=== PATIENT | male | born 1960 | race Caucasian/White ===

== ENCOUNTER 2024-07-14 22:05 | Inpatient (IN) | payer MEDICARE, OTHER ==
[~2024-07-14] VITALS: Ht 185.4 cm; Wt 68.0 kg
[2024-07-14] MEDS ORDERED: OLAN2.5T3 PO (22:20)
[2024-07-14] MEDS ORDERED: diphenhydrAMINE 50 MG/1 ML VIAL ONE (23:23)
[2024-07-14] MEDS ORDERED: LORAZEPAM 2 MG/1 ML VIAL ONE (23:23)
[2024-07-14] MEDS: LORAZEPAM 2 MG/1 ML VIAL IM ONE (23:28)
[2024-07-14] MEDS: diphenhydrAMINE 50 MG/1 ML VIAL IM ONE (23:29)
[2024-07-15] MEDS ORDERED: MAGNESIUM HYDROXIDE 30 ML LIQUID UDC PO PRN
[2024-07-15 00:14] VITALS: BP 119/68; TEMP 98.1; O2SAT 99
[2024-07-15] MEDS: TEMAZEPAM 7.5 MG CAPSULE PO PRN (00:35)
[2024-07-15] MEDS: LORAZEPAM 1 MG TABLET PO PRN ×2 (02:29→16:31)
[2024-07-15 08:04] VITALS: BP 140/71; TEMP 98.3; O2SAT 98
[2024-07-15] MEDS: OLANZAPINE ZYDIS 5 MG TAB.RAPDIS PO SCH (16:31)
[2024-07-16] MEDS: OLANZAPINE 10 MG VIAL IM ONE (04:55)
[2024-07-16] MEDS: ENSURE ENLIVE (VAN) 240 ML LIQUID PO SCH (08:20)
[2024-07-16 08:44] VITALS: BP 138/71; TEMP 98.1; O2SAT 98
[2024-07-16] MEDS: OLANZAPINE ZYDIS 5 MG TAB.RAPDIS PO PRN (14:20)
[2024-07-16] MEDS: diphenhydrAMINE 50 MG/1 ML VIAL IM STA (16:58)
[2024-07-16] MEDS: HALOPERIDOL LACTATE 5 MG/1 ML VIAL IM STA (16:58)
[2024-07-16 19:50] VITALS: BP 132/62; TEMP 98; O2SAT 96
[2024-07-16] MEDS: OLANZAPINE ZYDIS 5 MG TAB.RAPDIS PO SCH (20:14)
[2024-07-16] MEDS: TEMAZEPAM 7.5 MG CAPSULE PO PRN (22:27)
[2024-07-17] MEDS: OLANZAPINE 10 MG VIAL IM ONE (11:39)
[2024-07-17] MEDS: GABAPENTIN 100 MG CAPSULE PO SCH (17:02)
[2024-07-17 20:53] VITALS: BP 135/78; TEMP 98.6; O2SAT 96
[2024-07-18] MEDS: GABAPENTIN 300 MG CAPSULE PO SCH (12:21)
[2024-07-18] MEDS: risperiDONE 1 MG TABLET PO SCH (12:21)
[2024-07-18] MEDS ORDERED: OLANZAPINE ZYDIS 5 MG TAB.RAPDIS PO SCH (13:00)
[2024-07-18] MEDS ORDERED: GABAPENTIN 100 MG CAPSULE PO SCH (13:00)
[2024-07-18] MEDS: OLANZAPINE ZYDIS 5 MG TAB.RAPDIS PO SCH (17:20)
[2024-07-18 19:32] VITALS: BP 131/65; TEMP 98.2; O2SAT 97
[2024-07-19 08:14] VITALS: BP 157/92; TEMP 97.8; O2SAT 98
[2024-07-19 08:26] LABS: HEMATOCRIT 32.2 % (36.7-47.1); HEMOGLOBIN 10.9 g/dL (12.5-16.3); MEAN CORPUSCULAR VOLUME 99.4 fL (73.0-96.2); RED BLOOD CELL COUNT(AUTO) 3.24 MIL/uL (4.06-5.63); WHITE BLOOD COUNT (AUTO) 6.5 K/uL (3.6-10.2)
[2024-07-19 08:27] LABS: BASOPHILS % (AUTO) 0.6 % (0.0-2.0); EOSINOPHILS # (AUTO) 0.1 K/uL (0.0-0.7); EOSINOPHILS % (AUTO) 1.7 % (0.0-7.0); LYMPHOCYTES # (AUTO) 2.8 K/uL (0.8-4.8); MEAN CORPUSCULAR HEMOGLOBIN 33.5 uug (23.8-33.4); MEAN CORPUSCULAR HGB CONC 34 g/dL (32.5-36.3); MONOCYTES # (AUTO) 0.7 K/uL (0.1-1.30); MONOCYTES % (AUTO) 11.6 % (0.0-11.0); NEUTROPHILS # (AUTO) 2.7 K/uL (1.8-8.9); NEUTROPHILS % (AUTO) 42.1 % (38.5-71.5); PLATELET COUNT (AUTO) 238 K/uL (152-348)
[2024-07-19 08:32] LABS: DIFFERENTIAL COMMENT 1
[2024-07-19 09:14] LABS: ALBUMIN 2.8 g/dL (3.4-5.0); BILIRUBIN,TOTAL 0.2 mg/dL (0.2-1.0); CALCIUM 8.5 mg/dL (8.5-10.1); CREATININE 0.8 mg/dL (0.6-1.3); PHOSPHOROUS 3.8 mg/dL (2.5-4.9); POTASSIUM 4.6 mmol/L (3.5-5.1); TOTAL PROTEIN, SERUM 5.6 g/dL (6.4-8.2)
[2024-07-19 09:57] LABS: THYROID STIMULATING HORMONE 0.98 mIU/mL (0.358-3.740)
[2024-07-19] MEDS: risperiDONE 1 MG TABLET PO SCH (12:35)
[2024-07-19 16:04] VITALS: BP 132/68; TEMP 98.1; O2SAT 98
[2024-07-19 16:22] VITALS: BP 132/68; TEMP 98.1; O2SAT 98
[2024-07-19] MEDS: OLANZAPINE ZYDIS 5 MG TAB.RAPDIS PO SCH (17:13)
[2024-07-19] MEDS: OLANZAPINE ZYDIS 5 MG TAB.RAPDIS PO PRN (20:35)
[2024-07-20] MEDS: OLANZAPINE 10 MG VIAL IM ONE (02:52)
[2024-07-20] MEDS: ACETAMINOPHEN 325 MG TABLET PO PRN (08:59)
[2024-07-20] MEDS ORDERED: diphenhydrAMINE 50 MG/1 ML VIAL IV PRN (09:15)
[2024-07-20] MEDS: HALOPERIDOL LACTATE 5 MG/1 ML VIAL IM ONE ×2 (09:25→14:11)
[2024-07-20] MEDS: diphenhydrAMINE 50 MG/1 ML VIAL IV ONE (09:25)
[2024-07-20] MEDS: OLANZAPINE ZYDIS 5 MG TAB.RAPDIS PO SCH ×2 (12:55→20:22)
[2024-07-20] MEDS: LORAZEPAM 2 MG/1 ML VIAL IM ONE ×2 (14:11→14:12)
[2024-07-20 19:52] VITALS: BP 128/62; TEMP 98.5; O2SAT 96
[2024-07-20] MEDS ORDERED: OLANZAPINE ZYDIS 5 MG TAB.RAPDIS PO SCH (21:00)
[2024-07-21] MEDS: risperiDONE-M 0.5 MG TAB.RAPDIS PO SCH (08:55)
[2024-07-21] MEDS: GABAPENTIN 400 MG CAPSULE PO SCH (08:55)
[2024-07-21] MEDS: HALOPERIDOL LACTATE 5 MG/1 ML VIAL IM STA (15:01)
[2024-07-21] MEDS: diphenhydrAMINE 50 MG/1 ML VIAL IM STA (15:01)
[2024-07-22] MEDS: MAG HYDROX/AL HYDROX/SIMETH 30 ML LIQUID UDC PO PRN (07:40)
[2024-07-22] MEDS: risperiDONE 2 MG TABLET PO SCH (13:17)
[2024-07-22] MEDS: LORAZEPAM 0.5 MG TABLET PO SCH (13:17)
[2024-07-22] MEDS: OLANZAPINE ZYDIS 5 MG TAB.RAPDIS PO SCH (20:10)
[2024-07-22] MEDS: risperiDONE 1 MG TABLET PO SCH (20:10)
[2024-07-22] MEDS ORDERED: risperiDONE 1 MG/ML UDC PO SCH (21:00)
[2024-07-23 08:16] VITALS: BP 114/64; TEMP 98.2; O2SAT 100
[2024-07-23 19:35] VITALS: BP 115/67; TEMP 98; O2SAT 99
[2024-07-23] MEDS: risperiDONE 2 MG TABLET PO SCH (20:24)
[2024-07-23] MEDS ORDERED: risperiDONE 1 MG TABLET PO SCH (21:00)
[2024-07-24 16:13] VITALS: BP 138/80; TEMP 98.5; O2SAT 100
[2024-07-25 11:53] LABS: BASOPHILS % (AUTO) 0.5 % (0.0-2.0); EOSINOPHILS # (AUTO) 0.2 K/uL (0.0-0.7); EOSINOPHILS % (AUTO) 2.8 % (0.0-7.0); HEMATOCRIT 31.3 % (36.7-47.1); HEMOGLOBIN 10.5 g/dL (12.5-16.3); LYMPHOCYTES # (AUTO) 2.1 K/uL (0.8-4.8); LYMPHOCYTES % (AUTO) 23.6 % (20.5-51.5); MEAN CORPUSCULAR HEMOGLOBIN 33.2 uug (23.8-33.4); MEAN CORPUSCULAR HGB CONC 34 g/dL (32.5-36.3); MEAN CORPUSCULAR VOLUME 99.1 fL (73.0-96.2); MONOCYTES # (AUTO) 1.1 K/uL (0.1-1.30); MONOCYTES % (AUTO) 12.4 % (0.0-11.0); NEUTROPHILS # (AUTO) 5.3 K/uL (1.8-8.9); NEUTROPHILS % (AUTO) 60.7 % (38.5-71.5); PLATELET COUNT (AUTO) 233 K/uL (152-348); RED BLOOD CELL COUNT(AUTO) 3.16 MIL/uL (4.06-5.63); RED CELL DISTRIBUTION WIDTH 13.9 % (12.1-16.2); WHITE BLOOD COUNT (AUTO) 8.8 K/uL (3.6-10.2)
[2024-07-25 11:55] LABS: DIFFERENTIAL COMMENT 1
[2024-07-25 12:17] LABS: ALBUMIN 2.7 g/dL (3.4-5.0); BILIRUBIN,TOTAL 0.2 mg/dL (0.2-1.0); CALCIUM 8.8 mg/dL (8.5-10.1); CREATININE 0.7 mg/dL (0.6-1.3); POTASSIUM 4.3 mmol/L (3.5-5.1); TOTAL PROTEIN, SERUM 5.8 g/dL (6.4-8.2)
[2024-07-25] MEDS: TEMAZEPAM 7.5 MG CAPSULE PO SCH (21:44)
[2024-07-26] MEDS: TEMAZEPAM 7.5 MG CAPSULE PO PRN (01:38)
[2024-07-26 16:37] VITALS: BP 128/75; TEMP 98.3; O2SAT 96
[2024-07-26 20:03] VITALS: BP 131/61; TEMP 98.2; O2SAT 96
[2024-07-27 08:11] VITALS: BP 99/52; TEMP 98; O2SAT 99
[2024-07-27 19:52] VITALS: BP 120/70; TEMP 98.1; O2SAT 98
== END 2024-07-28 12:30 | DRG 885 ==
LOC: ER 22:05 → GPS 23:33
PROVIDERS: ADMIT Psychiatry & Neurology Psychosomatic Medicine; ATTEND Nurse Practitioner Acute Care
DX: F25.0 Schizoaffective disorder, bipolar type (principal); F91.8 Other conduct disorders; F41.9 Anxiety disorder, unspecified
CPT/HCPCS: 36415; 83735; 84100; 84443; 85025; 93005; J1200; J1630; J2060; J2358